=== PATIENT | male | born 1945 | race Caucasian/White ===

== ENCOUNTER 2018-08-11 10:24 | Emergency (ER) | payer MEDICARE, OTHER ==
[~2018-08-11] VITALS: Ht 162.6 cm; Wt 113.4 kg
[2018-08-11] MEDS ORDERED: 0.9 % SOD CHL for STERILE FIELD 10 ML DISP.SYRIN. ONE (10:38)
[2018-08-11 10:57] LABS: BASO % 0 % (0-3); EOS % 1 % (0-3); HEMATOCRIT 37.3 % (39.0-53.0); LYMPH # 0.4 x10^3/uL (1.0-4.8); LYMPH % 8 % (24-48); MEAN CORPUSCULAR HEMOGLOBIN 29 pg (25-35); MEAN CORPUSCULAR HGB CONC 32 g/dL (31-37); MEAN CORPUSCULAR VOLUME 90 fL (79-100); MONO # 0.4 x10^3/uL (0.0-1.1); MONO % 9 % (0-9); NEUT # 3.8 x10^3uL (1.8-7.7); NEUT % 82 % (31-73); PLATELET COUNT 180 x10^3/uL (140-400); RED BLOOD COUNT 4.13 x10^6/uL (4.30-5.70); RED CELL DISTRIBUTION WIDTH 15.2 % (11.5-14.5); WHITE BLOOD COUNT 4.7 x10^3/uL (4.0-11.0)
--- NOTE | 2018-08-11 11:06 | PHYS DOC ---
Adult General Chief Complaint Chief Complaint: HYPOGLYCEMIA HPI HPI This is a pleasant 72-year-old male who has a diagnosis of metastatic prostate cancer who comes to the emergency department today by EMS. His is here with me today and explains that over the past 24 hours he has had decreased responsiveness which she thought was the medications they started him on for pain. He is on fentanyl patch along with oral Dilaudid. Upon EMS arrival the patient's blood sugar was in the 20s. They were unable to start an IV so they gave the patient intramuscular glucagon and oral glucose by mouth which brought the patient's blood sugar up to the 60s. He was initially unresponsive and now is awake and alert. PMH: Stage IV prostate cancer, hypothyroidism, diabetes mellitus, hypertension, hyperlipidemia, history of water retention/edema. Surgical history: Status post radiation and chemotherapy for metastatic prostate cancer Social history: Lives at home with . Allergies Coconut Lasix Reglan adhesive tape penicillin and atenolol codein and azithromycin. Review of systems is negative for chest pain shortness of breath abdominal pain nausea vomiting fevers or chills. All other review of systems is negative. All other review of systems is negative unless otherwise noted in history of present illness. ED course: 72-year-old male presenting the emergency department today initially unresponsive when EMS arrived the patient received glucagon and oral glucose which improved his blood sugar and he he became awake. On arrival the patient's hypothermic and was placed on a bear hugger. EKG ordered along with chest x-ray blood work and head CT. I had a CODE STATUS discussion with the family who currently recommends full code. I begin palliative care discussion with him. Head CT is unremarkable. Patient's temperature was brought up here in the emergency department with a bear hugger. EKG obtained and reviewed by myself shows sinus rhythm. ST segments congruent. Not suggestive of ACS. CBC shows mild anemia. Troponin within normal limits. Chemistry panel unremarkable. Albumin is low. Blood sugar stays up after D50 given here in the emergency department. His shows blood without signs of infection. We will admit the patient for monitoring. Patient requested to be transferred to [facility]. Patient was was then transferred and admitted directly to [facility]. Accepting doctor was Dr. Zeeshan Simon. I spoke with the transfer team at 1243 and 1:17 PM. The patient will go to telemetry. I updated the family. Patient transferred in stable condition. Critical care time spent was 45 minutes exclusive of procedures. Time was spent evaluating the patient, ordering the administration of medications, reevaluating the patient, discussing with the admitting provider and documenting. Review of Systems Review of Systems SEE ABOVE. Current Medications Current Medications Current Medications Medications (Trade) Dose Ordered Sig/Darnell Start Time Stop Time Status Last Admin Dose Admin Acetaminophen (Tylenol) 650 mg 1X ONCE 08/11/18 12:00 08/11/18 12:01 DC 08/11/18 12:00 650 MG Hydromorphone HCl (Dilaudid) 0.5 mg PRN Q30MIN PRN 08/11/18 11:45 08/11/18 15:06 DC 08/11/18 14:49 0.5 MG Sodium Chloride (NORMAL SALINE FLUSH for STERILE FIELD) 10 ml STK-MED ONCE 08/11/18 10:38 08/11/18 10:39 DC Allergies Allergies Allergies Coded Allergies Type Severity Reaction Last Updated Verified Penicillins Allergy Unknown 08/11/18 Yes atenolol Allergy Unknown 08/11/18 Yes azithromycin Allergy Unknown 08/11/18 Yes coconut Allergy Unknown 08/11/18 Yes codeine Allergy Unknown 08/11/18 Yes latex Allergy Unknown 08/11/18 Yes metoclopramide Allergy Unknown 08/11/18 Yes Physical Exam Physical Exam SEE ABOVE Constitutional: Patient is alert and opens eyes spontaneously. He is appears chronically ill without any acute distress breathing comfortably in the examination room. HENT: Normocephalic, atraumatic, bilateral external ears normal, oropharynx moist, no oral exudates, nose normal. [] Eyes: PERRLA, EOMI, conjunctiva normal, no discharge. [] Neck: Normal range of motion, no tenderness, supple, no stridor. [] Cardiovascular:Heart rate regular rhythm, no murmur [] Lungs & Thorax: Bilateral breath sounds clear to auscultation [] Abdomen: Bowel sounds normal, soft, no tenderness, no masses, no pulsatile masses. [] Skin: Warm, dry, no erythema, no rash. [] Back: No tenderness, no CVA tenderness. [] Extremities: No tenderness, no cyanosis, no clubbing, ROM intact, no edema. [] Neurologic: Mental status: Awake and alert x3 Cranial nerves: Extraocular movements intact, eyebrows srikanth bilaterally, smile symmetric, uvula elevation nl, shoulder shrug intact bilaterally, tongue protrusion normal DTRs: 2+ Sensation: equal and normal in all extremities Strength: 5/5 in upper and lower extremities bilaterally Psychologic: Affect normal, judgement normal, mood normal. [] Current Patient Data Vital Signs Vital Signs Date Time Temp Pulse Resp B/P (MAP) Pulse Ox O2 Delivery O2 Flow Rate FiO2 08/11/18 14:50 98.3 98.3 08/11/18 14:37 71 18 142/64 (90) 95 Room Air Lab Values Laboratory Tests Test 08/11/18 10:31 08/11/18 10:40 08/11/18 10:51 08/11/18 11:19 Glucose (Fingerstick) 50 mg/dL (70-99) L 86 mg/dL (70-99) White Blood Count 4.7 x10^3/uL (4.0-11.0) Red Blood Count 4.13 x10^6/uL (4.30-5.70) L Hemoglobin 12.0 g/dL (13.0-17.5) L Hematocrit 37.3 % (39.0-53.0) L Mean Corpuscular Volume 90 fL (79-100) Mean Corpuscular Hemoglobin 29 pg (25-35) Mean Corpuscular Hemoglobin Concent 32 g/dL (31-37) Red Cell Distribution Width 15.2 % (11.5-14.5) H Platelet Count 180 x10^3/uL (140-400) Neutrophils (%) (Auto) 82 % (31-73) H Lymphocytes (%) (Auto) 8 % (24-48) L Monocytes (%) (Auto) 9 % (0-9) Eosinophils (%) (Auto) 1 % (0-3) Basophils (%) (Auto) 0 % (0-3) Neutrophils # (Auto) 3.8 x10^3uL (1.8-7.7) Lymphocytes # (Auto) 0.4 x10^3/uL (1.0-4.8) L Monocytes # (Auto) 0.4 x10^3/uL (0.0-1.1) Eosinophils # (Auto) 0.0 x10^3/uL (0.0-0.7) Basophils # (Auto) 0.0 x10^3/uL (0.0-0.2) Sodium Level 137 mmol/L (136-145) Potassium Level 4.0 mmol/L (3.5-5.1) Chloride Level 100 mmol/L (98-107) Carbon Dioxide Level 25 mmol/L (21-32) Anion Gap 12 (6-14) Blood Urea Nitrogen 16 mg/dL (8-26) Creatinine 1.1 mg/dL (0.7-1.3) Estimated GFR (Cockcroft-Gault) 66.2 Glucose Level 96 mg/dL (70-99) Lactic Acid Level 2.1 mmol/L (0.4-2.0) H Calcium Level 9.4 mg/dL (8.5-10.1) Total Bilirubin 0.6 mg/dL (0.2-1.0) Direct Bilirubin 0.3 mg/dL (0.0-0.2) H Aspartate Amino Transferase (AST) 56 U/L (15-37) H Alanine Aminotransferase (ALT) 20 U/L (16-63) Alkaline Phosphatase 618 U/L (46-116) H Troponin I Quantitative < 0.017 ng/mL (0.000-0.055) VA-Poz-T-Type Natriuretic Peptide 517 pg/mL (0-124) H Total Protein 7.2 g/dL (6.4-8.2) Albumin 2.8 g/dL (3.4-5.0) L Lipase 103 U/L (73-393) Urine Collection Type U cath Urine Color Yellow Urine Clarity Clear Urine pH 6.5 Urine Specific [place] 1.020 Urine Protein 30 mg/dL (NEG-TRACE) Urine Glucose (UA) 500 mg/dL (NEG) Urine Ketones (Stick) Negative mg/dL (NEG) Urine Blood Large (NEG) Urine Nitrite Negative (NEG) Urine Bilirubin Negative (NEG) Urine Urobilinogen Dipstick 0.2 mg/dL (0.2 mg/dL) Urine Leukocyte Esterase Negative (NEG) Urine RBC Tntc /HPF (0-2) Urine WBC 5-10 /HPF (0-4) Urine Squamous Epithelial Cells Few /LPF Urine Renal Epithelial Cells Few /LPF Urine Bacteria Few /HPF (0-FEW) Urine Mucus Mod /LPF Test 08/11/18 12:35 Glucose (Fingerstick) 184 mg/dL (70-99) H Laboratory Tests 08/11/18 10:40 Laboratory Tests 08/11/18 10:40 EKG EKG [] Radiology/Procedures Radiology/Procedures [] Course & Med Decision Making Course & Med Decision Making Pertinent Labs and Imaging studies reviewed. (See chart for details) [] Dragon Disclaimer Dragon Disclaimer This electronic medical record was generated, in whole or in part, using a voice recognition dictation system. Departure Departure Impression: Primary Impression: Hypoglycemia Additional Impression: Hyperthermia Disposition: 09 ADMITTED INPATIENT Condition: GUARDED Referrals: [facility]LER (PCP) Problem Qualifiers CARLOS GUTIERREZ MD August 11, 2018 11:05
[2018-08-11 11:18] LABS: CALCIUM 9.4 mg/dL (8.5-10.1); CREATININE 1.1 mg/dL (0.7-1.3); GFR 66.2
--- NOTE | 2018-08-11 11:23 | RAD ---
Portable chest, 08/11/2018: HISTORY: Cough No previous chest radiographs are available at this time for comparison purposes. A right Port-A-Cath extends into the inferior aspect of the superior vena cava. The heart size is normal. There are numerous tiny dense nodules in both lungs compatible with granulomata. No pulmonary consolidation is seen. There is no evidence of pleural fluid. IMPRESSION: 1. A right Port-A-Cath is in place in satisfactory position. 2. Numerous calcified granulomata in both lungs. 3. No acute infiltrates. Electronically signed by: Peterson Oates MD (08/11/2018 11:20 AM) [facility]
[2018-08-11 11:24] LABS: ALBUMIN 2.8 g/dL (3.4-5.0); DIRECT BILIRUBIN 0.3 mg/dL (0.0-0.2); TOTAL BILIRUBIN 0.6 mg/dL (0.2-1.0); TOTAL PROTEIN 7.2 g/dL (6.4-8.2)
[2018-08-11 11:32] LABS: BILIRUBIN,URINE NEGATIVE (NEG); CLARITY,URINE CLEAR; COLOR,URINE YELLOW; NITRITE,URINE NEGATIVE (NEG); PH,URINE 6.5; PROTEIN,URINE 30 mg/dL (NEG-TRACE); UROBILINOGEN,URINE 0.2 mg/dL (0.2 mg/dL)
[2018-08-11 11:45] LABS: SQUAMOUS EPITHELIAL CELL,UR FEW /LPF
[2018-08-11 11:46] LABS: BACTERIA,URINE FEW /HPF (0-FEW); RBC,URINE TNTC /HPF (0-2)
[2018-08-11] MEDS ORDERED: ACETAMINOPHEN 325 MG TABLET. PO ONE (12:00)
[2018-08-11] MEDS: HYDROmorphone 2 MG/ML VIAL IV PRN ×2 (12:02→14:49)
--- NOTE | 2018-08-11 12:10 | RAD ---
CT HEAD WO CONTRAST Indication: Decreased mental status Exposure: One or more of the following individualized dose reduction techniques were utilized for this examination: 1. Automated exposure control 2. Adjustment of the mA and/or kV according to patient size 3. Use of iterative reconstruction technique. Technique: Standard imaging without intravenous contrast. No evidence of acute intracranial hemorrhage. No evidence of mass effect, midline shift or abnormal extra-axial fluid collection. The ventricles and sulci appear symmetric. Yen-white matter distinction is intact. The orbits appear symmetric. Partially visualized paranasal sinuses demonstrate mild mucosal thickening of the right maxillary sinus. No notable area of scalp swelling. No acute skull abnormality. IMPRESSION: 1. No evidence of acute intracranial hemorrhage or mass effect. 2. Right maxillary sinus disease. Electronically signed by: Gaetano Becerra MD (08/11/2018 12:06 PM) [id number]
--- NOTE | 2018-08-11 14:35 | EKG ---
[facility] [address] [place] [address] Test Date: 2018-08-11 Test Time: 11:24:30 Pat Name: JOSE PARK Department: Room: Gender: M [employer] Analyst: : [id number] Requested By: CARLOS GUTIERREZ Order Number: [id number] Reading MD: Kamlesh Landis MD Measurements Intervals [place] Rate: 62 P: MO: QRS: -43 QRSD: 96 T: 19 QT: 446 QTc: 459 Interpretive Statements SR NON-SPECIFIC ST/T CHANGES Electronically Signed On 09-07-2018 14:37:16 CDT by Kamlesh Landis MD
[2018-08-11 14:37] VITALS: BP 142/64
== END 2018-08-11 14:55 | disposition short-term general hospital (02) ==
LOC: ER 10:24
DX: E11.649 Type 2 diabetes mellitus with hypoglycemia without coma (principal); R50.9 Fever, unspecified; E03.9 Hypothyroidism, unspecified; I10 Essential (primary) hypertension; E78.5 Hyperlipidemia, unspecified; Z88.0 Allergy status to penicillin; Z88.1 Allergy status to other antibiotic agents; Z88.8 Allergy status to other drugs, medicaments and biological substances; Z91.040 Latex allergy status; Z88.5 Allergy status to narcotic agent
CPT/HCPCS: 36415; 70450; 71045; 80048; 80076; 81001; 82962; 83605; 83690; 83880; 84484; 85025; 87086; 93005; 96374; 96376; 99285; J1170; P9612